=== PATIENT | female | born 1990 | race Caucasian/White ===

== ENCOUNTER 2024-02-20 11:08 | Outpatient (CLI) | payer BC, SELFPAY ==
--- NOTE | 2024-02-20 11:17 | US_ITS ---
FINAL REPORT TECHNIQUE: Real-time grayscale and color ultrasound of the thyroid was performed. CLINICAL HISTORY: ENLARGED THYROID COMPARISON: None FINDINGS: The thyroid gland measures 49 x 17 x 16 mm on the right and 49 x 16 x 17 mm on the left. The isthmus measures 3 mm. The parenchyma is unremarkable . 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 IMPRESSION: Several tiny TR 1 nodules bilaterally. No follow-up required per TI-RADS criteria. Reviewed, Interpreted and Dictated by Irving Brewer MD Transcribed by Lexy Stevens Authenticated and [facility]
== END 2024-02-20 23:59 | disposition home or self-care (01) ==
LOC: RAD 11:09
PROVIDERS: PCP Family Medicine; Visit Provider Family Medicine
DX: E04.9 Nontoxic goiter, unspecified (principal)
CPT/HCPCS: 76536